=== PATIENT | male | born 1980 | race Caucasian/White ===

== ENCOUNTER 2018-04-25 09:13 | Emergency (ER) | payer OTHER ==
[~2018-04-25] VITALS: Ht 175.3 cm; Wt 76.7 kg
[~2018-04-25 09:13] MED LIST: ERYTHROMYCIN O3.5 GM LEFT EYE; LORTAB 5-325 M1 EACH PO
[2018-04-25 10:00] LABS: HEMATOCRIT 40.1 % (38.0-50.0); HEMOGLOBIN 13.9 G/DL (12.5-16.6); MCH 31.7 PG (29.0-34.0); MCHC 34.7 G/DL (30.0-36.0); MCV 91.3 FL (86-99); PLATELET COUNT 190 K/uL (156-360); RBC DIS.WIDTH-CV 13.6 % (11.8-14.6); RBC DIS.WIDTH-SD 45.9 % (39-53); RED BLOOD COUNT 4.39 M/uL (4.00-5.50); WHITE BLOOD COUNT 10.9 K/uL (4.1-10.2)
[2018-04-25] MEDS ORDERED: BUSPAR7.5 MG PO (10:11)
[2018-04-25] MEDS ORDERED: ESCITALOPRAM OX20 MG PO (10:11)
[2018-04-25 10:12] LABS: ALBUMIN 4.1 g/dL (3.2-4.8); CHLORIDE 108 mEq/L (99-109); POTASSIUM 3.9 mEq/L (3.7-5.4); SODIUM 140 mEq/L (136-147)
[2018-04-25 10:14] LABS: GLUCOSE 114 mg/dL (70-99); TOTAL PROTEIN 6.5 g/dL (6.4-8.3)
[2018-04-25 10:16] LABS: TOTAL BILIRUBIN 0.3 mg/dL (0.0-1.0)
[2018-04-25 10:18] LABS: ALKALINE PHOSPHATASE 51 IU/L (3-129); CREATININE 0.8 mg/dL (0.6-1.3); GFR ESTIMATE (CALCULATED) > 59 mL/min/ (58.99-99999)
[2018-04-25 10:19] LABS: UREA NITROGEN (BUN) 13 mg/dL (9-23)
[2018-04-25 10:20] LABS: AST (GOT) 20 IU/L (2-34)
[2018-04-25 10:21] LABS: ALT (GPT) 24 IU/L (3-49); LIPASE 25 U/L (1.0-51.0)
[2018-04-25 11:45] LABS: APPEARANCE CLEAR ((CLEAR)); BILIRUBIN NEGATIVE; BLOOD SMALL; COLOR YELLOW ((YELLOW)); GLUCOSE (STRIP) NEGATIVE; KETONES NEGATIVE; LEUKOCYTES NEGATIVE; NITRITE NEGATIVE; PROTEIN (STRIP) NEGATIVE; UROBILINOGEN 0.2 MG/DL (0.2-1.0)
[2018-04-25] MEDS ORDERED: LEVSIN-SL0.125 MG SL (11:47)
[2018-04-25] MEDS ORDERED: ZOFRAN ODT4 MG PO (11:47)
[2018-04-25 11:49] LABS: SPECIFIC GRAVITY > 1.060 (1.000-1.030)
[2018-04-25 11:52] LABS: BACTERIA NONE SEEN /HPF; EPITHELIAL CELLS RARE /HPF; MUCUS TRACE /LPF; WHITE BLOOD CELLS 0-5 /HPF (0-5)
[2018-04-25 12:18] VITALS: BP 98/60
== END 2018-04-25 12:19 | disposition home or self-care (01) ==
LOC: EME 09:13
PROVIDERS: Nurse Practitioner Family
DX: K29.70 Gastritis, unspecified, without bleeding (principal); R19.7 Diarrhea, unspecified; K57.30 Diverticulosis of large intestine without perforation or abscess without bleeding; F41.9 Anxiety disorder, unspecified; Z87.891 Personal history of nicotine dependence
CPT/HCPCS: 74177; 80053; 81003; 83690; 85027; 87493; 87506; 99281; 99284; J1885; J2405; J7030